=== PATIENT | female | born 1970 | race Caucasian/White ===

== ENCOUNTER → 2018-06-19 10:41 | Outpatient (CLI) | payer OTHER, SELFPAY ==
--- OUTSIDE RECORDS SUMMARY | 2018-08-14 13:03 | XMS RPT_ITS ---
:1970 Author Organization OHIP Care Team Providers Name Role Phone Ronny Tineo Attending Unavailable Ronny Tineo Referring Unavailable Ronny Tineo Primary Care Unavailable KARINA GROSS DO Attending Unavailable PHYSICIAN, NONE Primary Care Unavailable Leilani Paredes Attending Unavailable Felton Gregory Attending Unavailable Felton Gregory Attending Unavailable Felton Gregory Attending Unavailable Felton Gregory Attending Unavailable Felton Gregory Attending Unavailable PROBLEMS PROBLEMS DATE TYPE CONDITION / CODE ATTENDING STATUS SOURCE 07/04/2018 Unknown T14.8XXA - Other Rivka, Active [facility] of [facility] unspecified body Hospital region, initial Repository encounter / T14.8XXA(ICD-10) 11/18/2017 Admitting Unknown / Lielani Paredes Active [facility] Medical diagnosis UNK(Unknown) [facility] Repository PROCEDURES PROCEDURES No Procedure Records FoundRESULTS RESULTS MISCELLANEOUS LAB Collected: 06/19/2018 Status: F Source: [facility] PROCEDURE 11:09 AM [facility] REPOSITORY Order Comment: Comments: LAB WORK SENT TO [facility] Test(s) Ordered: LAB WORK SENT TO [facility] TYPE CODE TESTS RESULT OUT OF RANGE REFERENCE UNITS LAB L801.1541 Normal [facility] LAB TEST Result Comment: Sent directly to testing facility per ordering physician. @ 07/02/18 0847 MYOUNG Performed By: #### L801.1541 #### [facility] [address] [place], [address] SURG Observed: 01/13/2018 Status: F Source: [facility] 5:35 PM CENTER [place] REPOSITORY Patient: TIMMY FROST F SPECIMEN: [id number] Collection Date: 01/13/181734 Received: 01/14/18 Status: VONDA Shine Dr.: Felton Gregory MD Ph# Othr. Dr.: No Family Physician given Material for Examination: A LEFT BREAST MASS/FIBROADENOMA PRE-OP DIAGNOSIS: FIBROADENOMA LEFT BREAST POST-OP DIAGNOSIS: SAME SURGICAL PROCEDURE: EXCISION OF LEFT BREAST MASS WITH ULTRASOUND NEEDLE LOCALIZATION DIAGNOSIS A. Left breast mass, excision with ultrasound needle localization: Fibroadenoma with focal apocrine metaplasia and intralesional microcalcifications. Fibrocystic changes in surrounding breast tissue encompassing duct ectasia, ductal epithelial hyperplasia without atypia, apocrine metaplasia, intraductal microcalcifications and stromal fibrosis. COMMENT Immunohistochemical stains, done on sections A4 and A7 to further evaluate the lesion, is positive in the myoepithelial cells surrounding all of the ducts, supporting the diagnosis. GROSS DESCRIPTION The specimen is received fresh and labeled with the patient's name, ID and designated left breast mass/fibroadenoma. The specimen is removed from the patient on January 13, 2018 at 1735 hrs. The specimen is placed in formalin on January 13, 2018 at 1755 hrs. The specimen is received in a Zain device and consists of a fibrofatty portion of breast tissue, 48.6 g and 7.7 x 6.8 x 2.0 cm. The specimen is oriented with a short stitch superior and a long stitch lateral. The specimen is inked as follows: Superior margin - yellow; Inferior margin - red; Medial margin - orange; Lateral margin - green; Anterior margin - blue; Posterior margin - black. The specimen has a pinned radiographic area of interest. Identified in the radiographic area of interest is a white, well-circumscribed, rubbery, slightly lobulated nodule that is focally hemorrhagic, 2.3 x 2.0 x 1.1 cm. Grossly, this is 0.1 cm from the medial, inferior, and anterior margins. A metal clip is identified within this nodule. The remainder of the breast consists of mostly lobulated adipose tissue and only scant white fibrous tissue is identified. No additional lesions or nodules are grossly identified. Trade Show Manager sections are submitted in cassettes A1 through A8. SECTION SUMMARY: A1-7. The entire nodule A8. Trade Show Manager fibrous tissue [facility] NAME: TIMMY FROST Pathology and Laboratory Medicine UNIT#: [id number] LOC: [facility] Cryptographic Clerk: Danii Solis M.D. [id number] ROOM/BED: [facility] : 66 AGE/SEX: 47/F ORD.Felton Gage MD CONTINUED ON NEXT PAGE Patient: TIMMY FROST Unit#: [id number] (continued) SPECIMEN: [id number] MICROSCOPIC DESCRIPTION Eight Ariadna stained slides and two p63 immunostained slides with adequate positive and negative controls are examined. COPIES TO: No Family Physician given Felton Gregory MD Signed Verified/Reviewed by NINA EUCEDA MD 01/16/18 This dictation was created using voice recognition software. Phonetic and/or minor grammatical errors may exist. [facility] NAME: TIMMY FROST Pathology and Laboratory Medicine UNIT#: [id number] LOC: [facility] Cryptographic Clerk: Danii Solis M.D. [facility] [id number] ROOM/BED: [facility] : 66 AGE/SEX: 47/F ORD.Felton Gage MD END OF REPORT US EACH NEEDLE Observed: 01/13/2018 Status: F Source: [facility] 11:36 AM [facility] US EACH NEEDLE [facility] , US BREAST TARGETED LEFT Ordering Physician: Felton Gregory MD 01/13/2018 1:11 PM TARGETED LEFT BREAST ULTRASOUND WITH ULTRASOUND-GUIDED NEEDLE LOCALIZATION: Clinical Statement: Mass localization, unable to palpate. Comparison: Left breast ultrasound 12/10/2017. Report: The needle localization procedure was briefly discussed with the patient. The left breast was prepped and draped in the usual sterile fashion. Local anesthesia was provided using 1% lidocaine. Under ultrasound guidance, wire localization of the 2.5 cm left breast mass at 4:00 was performed using a 5 cm localization needle. Puncture was made at the skin surface near the superolateral margin of the mass. The wire was deployed within the mass along the posterior margin of the biopsy marking clip. Images were saved to PACS for documentation. IMPRESSION: Successful ultrasound-guided wire localization of the left breast mass at 4:00. ---- Electronic Signature on File ---- Signed By: Toby Lopez MD [email or web address] Dictated: 01/13/2018 1:46 PM Signed: 01/13/2018 1:50 PM Reported By: TOBY LOPEZ M.D. Signed By: TOBY LOPEZ M.D. US BREAST TARGETED Observed: 01/13/2018 Status: F Source: [employer] [facility] 11:36 AM [facility] US EACH NEEDLE LOCAL BRST LT , US BREAST TARGETED LEFT Ordering Physician: Felton Gregory MD 01/13/2018 1:11 PM TARGETED LEFT BREAST ULTRASOUND WITH ULTRASOUND-GUIDED NEEDLE LOCALIZATION: Clinical Statement: Mass localization, unable to palpate. Comparison: Left breast ultrasound 12/10/2017. Report: The needle localization procedure was briefly discussed with the patient. The left breast was prepped and draped in the usual sterile fashion. Local anesthesia was provided using 1% lidocaine. Under ultrasound guidance, wire localization of the 2.5 cm left breast mass at 4:00 was performed using a 5 cm localization needle. Puncture was made at the skin surface near the superolateral margin of the mass. The wire was deployed within the mass along the posterior margin of the biopsy marking clip. Images were saved to PACS for documentation. IMPRESSION: Successful ultrasound-guided wire localization of the left breast mass at 4:00. ---- Electronic Signature on File ---- Signed By: Toby Lopez MD [email or web address] Dictated: 01/13/2018 1:46 PM Signed: 01/13/2018 1:50 PM Reported By: TOBY LOPZE M.D. Signed By: TOBY LOPEZ M.D. OR Observed: 01/13/2018 Status: UNK Source: [facility] 11:36 AM [facility] DATE OF SERVICE: 01/13/2018 PREOPERATIVE DIAGNOSIS: Fibroadenoma, left breast. POSTOPERATIVE DIAGNOSIS: Fibroadenoma, left breast. OPERATION: Excision of left breast fibroadenoma after wire localization. SURGEON: Felton Gregory MD INDICATIONS FOR PROCEDURE: A 47-year-old female with biopsy- proven left breast fibroadenoma. She requested removal. Discussed the option for observation. She declined that. The lesion was initially palpable; however, over the last 4 weeks, it appears that it has shrunken in size. I was not able to identify the previously palpable lesion on physical examination in the preoperative area, and I recommended localization under ultrasound guidance. The radiology department was kind enough to accommodate that on a short notice. The wire was placed. TECHNIQUE: Left breast prepped and draped in sterile fashion, and incision was made parallel to the areola, curvilinear, deep into the subcutaneous fat following the path of the wire. Core of breast tissue was removed around the wire all the way down to the tip. Palpable fibroadenoma was noted. Excision extended beyond that. The specimen was oriented with short superior and long lateral. Hemostasis was excellent. The x-ray postexcision confirmed that the lesion was completely excised, including the clip and the tip of the wire. The cavity was then instilled with Marcaine with epinephrine. Layered closure was performed with 3-0 Vicryl in the deep dermis, running 4-0 Monocryl suture. Dermabond was applied. Patient tolerated procedure very well, was extubated, transferred to recovery room area in stable condition. Felton Gregory MD [id number] SSI File#: [id number] Verified/Reviewed by 01/18/18 1759 SHAMA4 [facility] PATIENT NAME: TIMMY FROST [address] [facility] [address] [place] MEDICAL REC #: [id number] [place] [address] ADMIT DATE: DISCHARGE DATE: OPERATIVE REPORT ATTENDING PHY: Felton Gregory MD DIGITAL MAMMO UNILAT Observed: 01/13/2018 Status: F Source: [facility] LT (DIAG) 11:36 AM [facility] REPOSITORY UNILATERAL LEFT DIGITAL DIAGNOSTIC MAMMOGRAM: 01/13/2018 CLINICAL: POST U/S NEEDLE LOC. Comparison is made to exams dated: 01/13/2018 localization, 11/18/2017 mammogram - [facility], and 08/07/2016 mammogram - [facility]. The tissue of the left breast is heterogeneously dense. This may lower the sensitivity of mammography. There is a wire in the appropriate position in the left breast lower outer aspect middle depth. This wire placement is at biopsy clip site. IMPRESSION: POST PROCEDURE MAMMOGRAM FOR MARKER PLACEMENT There was a successful wire placement in the left breast lower outer aspect middle depth. The distal end of the wire is at the biopsy clip site. The false-negative rate of mammography is approximately 10%. Management of a palpable abnormality must be based upon clinical grounds. Elisa Garza M.D. kk/:01/13/2018 13:58:59 Booking Officer: Yojana WOODRUFF(Nimo)(Manuel), [facility] BI-RADS: Post biopsy marker Reported By: ELISA GARZA M.D. Signed By: ELSIA GARZA M.D. DIGITAL SURGICAL Observed: 01/13/2018 Status: F Source: [facility] SPECIMEN LT 11:36 AM [facility] REPOSITORY SPECIMEN LEFT BREAST: 01/13/2018 CLINICAL: Mass, left breast. Correlation is made to exams dated: 01/13/2018 mammogram - [facility] and 11/18/2017 mammogram - [facility]. A lumpectomy specimen was imaged for the previous biopsy site located in the left breast upper outer aspect anterior depth. This was described on the previous mammography report. IMPRESSION: SPECIMEN The imaged specimen includes the lesion, a biopsy clip, and the distal portion of the localization wire. Waiting for pathology results. A final report will be issued when these become available. Addendum: Pathology results: Left breast mass, excision with ultrasound needle localization: Fibroadenoma with focal apocrine metaplasia and intralesional microcalcifications. Fibrocystic changes in surrounding breast tissue encompassing duct ectasia, ductal epithelial hyperplasia without atypia, apocrine metaplasia, intraductal microcalcifications and stromal fibrosis. Findings are concordant. Elisa Garza M.D. kk/:01/17/2018 08:02:41 Booking Officer: RT Hemanth(Nimo)(M), [facility] Reported By: ELISA GARZA M.D. Signed By: ELISA GARZA M.D. SURG Observed: 12/10/2017 Status: F Source: [facility] 3:13 PM [facility] REPOSITORY Patient: TIMMY FROST F SPECIMEN: [id number] Collection Date: 12/10/171512 Received: 12/11/17 Status: VONDA Shine Dr.: Felton Gregory MD Ph# Othr. : Dewayne Coronado MD Othr. : No Family Physician given Material for Examination: A CORE BIOPSY LEFT BREAST MASS 4 O'CLOCK 8 CM FTN LOWER/OUTER PRE-OP DIAGNOSIS: LEFT BREAST MASS POST-OP DIAGNOSIS: NONE GIVEN SURGICAL PROCEDURE: CORE BIOPSY LEFT BREAST MASS LOWER/OUTER 4 O'CLOCK 8 CM FTN DIAGNOSIS A. Core biopsy left breast mass at 4 o'clock, 8 cm FTN, lower/outer: - Fibroadenoma. GROSS DESCRIPTION The specimen is received in formalin and labeled with the patient's name, ID and designated left breast, lower outer, 4:00, 8 cm FTN, are 5 friable fragments of core shaped yellow-white tissue measuring from 0.5-1.5 cm in length, x 0.2 cm in diameter each. The specimen is removed from the patient at 1451 hrs on December 10, 2017, and placed in formalin at 1452 hrs on December 10, 2017. Entirely submitted in cassette A1. MICROSCOPIC DESCRIPTION Two Ariadna stained slides examined. Intradepartmental consultation with Nicolas Ruiz M.D. COPIES TO: Dewayne Coronado MD No Family Physician given Felton Gregory MD Signed Verified/Reviewed by DANII SOLIS M.D. 12/12/17 This dictation was created using voice recognition software. Phonetic and/or minor grammatical errors may exist. [facility] NAME: TIMMY FROST Pathology and Laboratory Medicine UNIT#: [id number] LOC: [facility] Cryptographic Clerk: Danii Solis M.D. [facility] [id number] ROOM/BED: [facility] : 66 AGE/SEX: 47/F ORD.Felton Gage MD END OF REPORT US BREAST TARGETED Observed: 12/10/2017 Status: F Source: [facility] 1:30 PM [facility] [place] REPOSITORY ULTRASOUND OF LEFT BREAST: 12/10/2017 CLINICAL: LEFT BREAST MASS. Comparison is made to exams dated: 11/18/2017 mammogram and 11/18/2017 ultrasound - [facility]. Color flow ultrasound of the left breast was performed. Mercado scale images of the real-time examination were reviewed. There is a 2.5 cm oval lesion with a circumscribed margin in the left breast lower outer aspect middle depth. This oval lesion is hypoechoic with posterior acoustic enhancement. This correlates with ultrasound findings. IMPRESSION: SUSPICIOUS OF MALIGNANCY The 2.5 cm oval lesion in the left breast has a differential diagnosis of carcinoma or a fibroadenoma and is suspicious of malignancy. This will be biopsied as described separately. Dewayne Coronado M.D. [facility]/:12/10/2017 15:36:27 Booking Officer: Martha Griffin RDMS RT(R), [facility] Ultrasound BI-RADS: 4 Suspicious abnormality Reported By: DEWAYNE CORONADO M.D. Signed By: DEWAYNE CORONADO M.D. US LT BREAST COR BX Observed: 12/10/2017 Status: F Source: [facility] NEEDLE 1:30 PM [facility] [place] REPOSITORY ULTRASOUND GUIDED BIOPSY LEFT BREAST WITH MARKING DEVICE INSERTED: 12/10/2017 CLINICAL: LEFT BREAST MASS. PROCEDURE DESCRIPTION: Potential risks and benefits of the procedure were explained to the patient and informed written consent was obtained. Correlation is made to exams dated: 11/18/2017 ultrasound and 11/18/2017 mammogram - [facility]. An ultrasound guided biopsy using real-time ultrasound was performed for the 2.5 cm lobulated mass located in the left breast at 4 o'clock middle depth. This was described on the previous ultrasound report. The skin was prepped in the usual manner. The abnormality was approached from the lateral aspect. A biopsy needle was placed adjacent to the abnormality under ultrasound guidance. Once the needle was documented to be in the correct location, four specimens were obtained using an automated biopsy gun. A twirl clip was inserted into the biopsy cavity. Post procedure imaging demonstrates the clip at the targeted area. The specimens were sent to the laboratory for pathological analysis. IMPRESSION: ULTRASOUND GUIDED BIOPSY BENIGN Ultrasound guided biopsy of the 2.5 cm mass in the left breast at 4 o'clock middle depth was performed. Pathology indicates benign fibroadenoma (FA). Pathology results are concordant with imaging findings. Return to annual mammogram screening schedule is recommended. Dewayne Coronado M.D. [facility]/:12/12/2017 14:17:39 Booking Officer: Martha Griffin RDMS RT(R), [facility] Reported By: DEWAYNE CORONADO M.D. Signed By: DEWAYNE CORONADO M.D. US BREAST TARGETED Observed: 11/18/2017 Status: F Source: [facility] LEFT 1:28 PM [facility] [place] REPOSITORY ULTRASOUND OF LEFT BREAST: 11/18/2017 CLINICAL: Left breast lump. Comparison is made to exam dated: 08/07/2016 mammogram - [facility]. Color flow ultrasound of the left breast was performed. Mercado scale images of the real-time examination were reviewed. There is a 2.5 cm oval mass with a circumscribed margin in the left breast lower outer aspect middle depth. This oval mass is hypoechoic. Color flow imaging demonstrates that there is increased vascularity. IMPRESSION: SUSPICIOUS OF MALIGNANCY - FOLLOW-UP RECOMMENDED The 2.5 cm oval mass in the left breast has a differential diagnosis of carcinoma or a fibroadenoma and is suspicious of malignancy. An ultrasound guided biopsy is recommended. Dewayne Coronado M.D. bc/penrad:11/18/2017 14:32:29 Booking Officer: Shanna Vizcarra, [facility] letter sent: Abnormal Exam Ultrasound BI-RADS: 4 Suspicious abnormality Reported By: DEWAYNE CORONADO M.D. Signed By: DEWAYNE CORONADO M.D. DAV MAMMO BILAT Observed: 11/18/2017 Status: F Source: [facility] (DIAG) 1:28 PM [facility] [place] REPOSITORY BILATERAL DIGITAL DIAGNOSTIC MAMMOGRAM TOMOSYNTHESIS WITH CAD: 11/18/2017 CLINICAL: Left breast lump. Comparison is made to exams dated: 08/07/2016 mammogram, 06/01/2015 mammogram, and 06/08/2014 mammogram - [facility]. The tissue of both breasts is heterogeneously dense. This may lower the sensitivity of mammography. Digital Breast Tomosynthesis was performed. Current study was also evaluated with a Computer Aided Detection (CAD) system. There are benign calcifications both breasts. There also is a benign intramammary node right breast. There is a 2.3 cm round equal density mass with a circumscribed margin in the left breast upper outer aspect middle depth. No other significant masses, calcifications, or other findings are seen in either breast. IMPRESSION: SUSPICIOUS OF MALIGNANCY The 2.3 cm round equal density mass in the left breast is suspicious of malignancy. An ultrasound guided biopsy is recommended. The false-negative rate of mammography is approximately 10%. Management of a palpable abnormality must be based upon clinical grounds. Shanna Cotter M.D. eab,mrd/penrad:11/18/2017 15:50:25 Booking Officer: Kathleen Enamorado, RT(R)(M), [facility] letter sent: Abnormal Exam BI-RADS: 4 Suspicious abnormality Reported By: SHANNA SEVILLA M.D. Signed By: SHANNA SEVILLA M.D. ALLERGIES ALLERGIES DATE TYPE / CODE NAME / CODE REACTION SEVERITY SOURCE 10/11/2014 Drug Penicillins/F Hives Unknown [facility] Allergy/4160 [id number](RXN Hospital 09411(SNOMED ORM) Repository CT) 10/11/2014 Drug Sulfa Vomiting Unknown [facility] Allergy/4160 (Sulfonamide Hospital 05323(SNOMED Antibiotics)/ Repository CT) [id number](RX NORM) ENCOUNTERS ENCOUNTERS ADMIT/DISCHARGE ACCOUNT NUMBER ADMITTING ENCOUNTER LOCATION SOURCE CLASS 06/19/2018 [id number] Ambulatory [facility] ding:MTLAB Repository 02/04/2018 [id number] [facility] ng:H.SHA 01/13/2018 [id number] [facility]SD 12/17/2017 [id number] Ambulatory [facility] Repository ng:H.SHA 12/10/2017 [id number] [facility] ng:H. 11/27/2017 [id number] [facility] ng:H.SHA 11/18/2017 [id number] Ambulatory [facility] Repository ng:H.LINUS 09/06/2017/09/06/19 [id number] Emergency BBuilding:LILLY [address] Repository PAYERS PAYERS ENCOUNTER GUARANTOR PAYER SUBSCRIBER SOURCE 06/19/2018 TIMMY F Primary Insurance:UMR TIMMY F [place] [id number] [address]B[place]fie CHABOUDEDOB: [facility], Number: [id number] [place] [address]Jmw: [id number] Repository Date:[id number] () [address] [place] [phone]: 06/19/2018 Secondary NOT GIVENUNK [place] Insurance:SELF PAY [facility] Number: Effective Repository Date:2018-06-19 02/04/2018 TIMMY F Primary TIMMY [facility] [id number] [facility] [place] [address]Gnj: RESOURCESPolicy Number: (HP) [id number] Date:6529-82-64[address] [place] [address]JW: 01/13/2018 TIMMY F Primary TIMMY [facility] [id number] [facility] [place] [address]Wwy: RESOURCESPolicy Number: (HP) [id number] Date:6863-83-63[address] [place] [address]XM: 12/17/2017 TIMMY F Primary TIMMY [facility] [id number] [facility] [place] [address]Myr: RESOURCESPolicy Number: (HP) [id number] Date:9407-20-85[address] [place] [address]VP: 12/10/2017 TIMMY F Primary TIMMY [facility] [id number] [address] [facility] [place] [facility] [place] [address]Yjw: RESOURCESPolicy Number: (HP) [id number] Date:[id number] [place] [address]MW: 11/27/2017 TIMMY Jauregui Primary TIMMY Stack [facility] [id number] Insurance:[facility] [place] [address]Vva: RESOURCESPolicy Number: (HP) [id number] Date:[address] [place] [address]CD: 11/18/2017 TIMMY F Primary TIMMY Stack [facility] [id number] E Insurance:[facility] [place]ository [place] [address]Ayk: RESOURCESPolicy Number: (HP) [id number] Date:[address] [place] [address]JZ: 09/06/2017 TIMMY Jauregui Primary TIMMY Jauregui [facility] CHABOUDEDOB: Insurance:[facility] E HEALTH PLANPolicy [id number], Number: [place], [place] [address]Psr: [id number] [place] [address]Hqi: Date:2017-09-06 - ()Tel: [phone]) [id number] () (WP) Name:[phone] () [address] [place] [id number]:
== END ==
PROVIDERS: Family Provider Family Medicine; PCP Family Medicine; Referring Provider Family Medicine; Visit Provider Family Medicine
DX: T14.8XXA Other injury of unspecified body region, initial encounter (principal)
CPT/HCPCS: 36415

== ENCOUNTER 2023-02-06 09:13 | Emergency (ER) | payer BC, SELFPAY ==
[2023-02-06 09:14] VITALS: BP 177/120; PULSE 97; RESP 14; TEMP 36.4; O2SAT 97; BMI 24.1
--- NOTE | 2023-02-06 09:22 | EDS_ITS ---
HPI History of Present Illness Chief Complaint: Lower Extremity Injury [facility] Medical History (Updated 02/06/23 @ 10:[address] Lucio Pimentel, DO) Depressed Home Medications Ranitidine [Zantac] 150 mg PO DAILY 10/09/14 [History Last Taken 10/11/14] citalopram 20 mg tablet 20 mg PO DAILY 10/09/14 [History Last Taken 10/11/14] estradiol 2 mg tablet (Estrace) 2 mg PO DAILY 10/09/14 [History Last Taken 10/11/14] lisinopril 10 mg tablet 10 mg PO DAILY 10/09/14 [History Last Taken 10/11/14] lorazepam 0.5 mg tablet 0.5 mg PO TID PRN PRN Anxiety 10/09/14 [History Last Taken 10/10/14] ohqivuvx-dgvnjfqjg-xjjhruqk 3.5 mg/mL-10,000 unit/mL-0.1% eye drops 1 drp OP TID 10/09/14 [History Last Taken 10/11/14] oxybutynin chloride 5 mg tablet 5 mg PO BID 10/09/14 [History Last Taken 10/11/14] oxycodone-acetaminophen 5 mg-325 mg tablet 1 - 2 tab PO Q4H PRN PRN Pain #12 tabs 10/09/14 [Rx Last Taken 10/11/14] trazodone 100 mg tablet 100 mg PO QHS 10/09/14 [History Last Taken 10/10/14] daptomycin 500 mg intravenous solution 350 mg IV Q24H 10/13/14 [History Last Taken 10/13/14] cefadroxil 1 gram tablet 1 g PO 10 facial cellulitis #10 tabs 10/16/14 [Rx Last Taken Unknown] Allergy/AdvReac Type Severity Reaction Status Date / Time bacitracin Allergy Mild Swelling Verified 02/06/23 09:16 Penicillins Allergy Hives Verified 02/06/23 09:16 Sulfa (Sulfonamide AdvReac Vomiting Verified 02/06/23 09:16 Antibiotics) Social History Smoking Status: Heavy Smoker (>10/day) EXAM Physical Exam Const Vital Signs: 02/06/23 09:14 Temperature 97.5 F L Temperature Source Temporal Pulse Rate 97 Respiratory Rate 14 Blood Pressure 177/120 H Blood Pressure Mean 139 Pulse Ox 97 Oxygen Delivery Method Room Air MDM MDM MDM Narrative Medical decision making narrative: HISTORY OF PRESENT ILLNESS: 52-year-old female here with concern for right ankle pain. she states there is been no inciting event. She states is going on for the greater part of 2 months. She states she has not followed up or seen a doctor about it. States she has appointment with a foot and ankle doctor on Saturday. States the pain has gotten worse recently since she has been ambulating more and moving from [place] to [place]. Denies any fevers. Denies history of diabetes. Denies any history of IV drug use. Denies any back pain. Denies any pain in other joints. Patient denies active cancer, being bedridden for greater than 3 days, denies unilateral leg swelling, denies any varicose veins, denies any calf tenderness, denies any edema. Denies major surgery within 12 weeks, recent paralysis, previous DVT. REVIEW OF SYSTEMS: Pertinent positives: Right ankle pain Pertinent negatives: Focal numbness, weakness, loss of sensation or movement PHYSICAL EXAM: Nursing triage notes reviewed, Vital signs reviewed Constitutional: please see mdm Lungs: Clear to auscultation, No wheezing or rales. No increased work of breathing, no conversational dyspnea, no accessory muscle use, no nasal flaring. No respiratory distress noted Heart: Regular rate and rhythm, No murmurs, No rubs and No gallops, 2+ distal pulses (radial, femoral, posterior tibial) in all extremities Extremities: Mild edema noted over the right lateral malleolus, pain was not out of proportion to exam, joint was not warm or excessively swollen. There is no calf tenderness. Compartments were soft. Neuro: No focal neurological deficits, cranial nerves II through XII intact, 5/5 strength in all extremities. Intact sensation to light touch in all extremities, 2+ reflexes bilateral patella tendons. Normal gait. No ataxia. Skin: No erythema MEDICAL DECISION MAKING: Chief Complaint: Right ankle pain External records reviewed: No recent advanced imaging of the involved extremity Factors affecting care: GERD, hypertension, depression Social determinants of health: none History obtained from others: none Consults: none ALL IMAGES (IF OBTAINED) HAVE BEEN PERSONALLY REVIEWED AND INTERPRETED BY MYSELF. [facility] Narrative: Patient was initially hypertensive otherwise hemodynamically stable afebrile and nontoxic-appearing. Right lower extremity is neurovascularly intact. Compartments are soft. Symmetric pulses are present in bilateral lower extremities. I considered the following differential diagnosis: Ankle fracture, dislocation, sprain, osteoarthritis I obtained an x-ray to rule out ankle fracture dislocation or sprain. X-ray was unremarkable. I considered septic arthritis however patient had no significant joint swelling, warmth, pain or proportion to exam or risk factors that would predispose patient to septic arthritis. I did discuss pursuing an arthrocentesis for definitive diagnosis however patient refused procedure at this time. Given the chronic nature of the patient's pain I have suspicion this is acute limb threatening etiology. May be associated with chronic inflammatory issues such as rheumatoid arthritis. We will give rheumatology and foot and ankle follow-up. I discussed strict return precautions with the patient. The patient and/or family, caregivers express understanding. The patient and/or family, caregivers agrees with the plan. Shared decision making: I will have a discussion with the patient and or visitors regarding risk/bene fits of further testing or admission. They will be made aware of of the risk/benefits inherent in this decision they will be given the opportunity to voice understanding. Total critical care time today provided was at least 0 minutes. This excludes separately billable procedures. Critical care time (if documented) is secondary to the patient having high probability of clinically significant/life threatening deterioration in the patient's condition which required my urgent intervention. Radiography Chest X-Ray - ED: Read by ED Physician Diagnostic Testing: X-ray right ankle shows no evidence of obvious fracture dislocation by my read. Discharge Plan Triage Chief Complaint: Lower Extremity Injury ED Provider: Lucio Pimentel Dx/Rx/DC Orders Clinical Impression: Acute ankle pain Instructions: ED Ankle Sprain (Adult), ED RICE Prescriptions: No Action citalopram 20 MG tablet 20 mg PO DAILY Patient Comments: DEPRESSION lorazepam 0.5 MG tablet 0.5 mg PO TID PRN PRN (Reason: Anxiety) Patient Comments: ANXIETY trazodone 100 MG tablet 100 mg PO QHS Patient Comments: SLEEP neomycin-polymyxin B-dexameth 5 ML drops,suspension 1 drp OP TID Patient Comments: EYE HEALTH lisinopril 10 MG tablet 10 mg PO DAILY Patient Comments: BLOOD PRESSURE estradiol [Estrace] 2 MG tablet 2 mg PO DAILY Patient Comments: SUPPLIMENT oxybutynin chloride 5 MG tablet 5 mg PO BID Patient Comments: BLADDER Ranitidine [Zantac] 150 MG tablet 150 mg PO DAILY Patient Comments: HEART BURN oxycodone-acetaminophen 1 TABLET tablet 1 - 2 tab PO Q4H PRN PRN (Reason: Pain) Qty: 12 0RF Patient Comments: PAIN cefadroxil 1 GM tablet 1 g PO 10 Qty: 10 0RF Rx Instructions: start day after end of last IV antibiotic daptomycin 500 MG/10 ML recon soln 350 mg IV Q24H Stand Alone Forms: ED Work / School Excuse Primary Care Provider: Care Physician,No Primary Referrals: Mauricio Tineo MD [Med Staff - Creative Services Intern] - Zoila Gracia MD [Med Staff - Creative Services Intern] - Activity Restrictions/Additional Instructions: Thank you for trusting us with your care today! Please take Tylenol (2 pills, 650 mg), ibuprofen (2 pills, 400 mg) every 6 hours as needed for pain and fever control. Please return to the emergency department if your symptoms change or worsen. Specifically if develop fever, warmth, inability to move your involved extremity, change in color, coolness to touch or if your symptoms change or worsen in any way. Please follow with your primary care physician for further outpatient evaluation and management. Disposition Disposition: Home, Self Care Discharge Date/Time: 02/06/23 10:32
[2023-02-06] MEDS: Ibuprofen 200 MG Tablet 400 MG PO (09:37)
[2023-02-06] MEDS: Oxycodone/Apap 5/325 Tablet PO (09:38)
--- NOTE | 2023-02-06 09:45 | RAD_ITS ---
INDICATION: Right ankle pain, TTP over right lateral malleolus EXAMINATION/TECHNIQUE: X-RAY - RIGHT XR Ankle Min 3 Views 3 VIEWS COMPARISON: None. FINDINGS: SOFT TISSUES: Mild generalized soft tissue swelling. No radiopaque foreign body. BONES/JOINTS: No acute fracture or subluxation. Normal alignment. Preservation of the joint space. Incidental note of a moderate size plantar spur of the calcaneus.. No sclerotic or destructive changes observed. RAD/Ankle min 3 Views IMPRESSION: Some soft tissue swelling is present. No acute osseous abnormality of the right ankle. Electronically Signed: Gianni Lagunas MD at 9:55 EDT Reading Location ID and State: [id number] / Unknown , Service support ,
== END 2023-02-06 10:32 | disposition home or self-care (01) ==
PROVIDERS: Emergency Provider Emergency Medicine; Visit Provider Emergency Medicine
DX: M25.579 Pain in unspecified ankle and joints of unspecified foot (principal); M00.9 Pyogenic arthritis, unspecified; K21.9 Gastro-esophageal reflux disease without esophagitis; I10 Essential (primary) hypertension; F17.200 Nicotine dependence, unspecified, uncomplicated; F32.A Depression, unspecified
CPT/HCPCS: 73610; 99283

== ENCOUNTER → 2023-02-20 | Outpatient (CLI) | payer BC, SELFPAY ==
[2023-02-20 17:39] LABS: Absolute Lymphocyte Count 2.61 X10^3/uL (0.83-4.51); Absolute Neutrophil Count 3.1 X10^3/uL (2.0-7.7); Basophil# 0.03 X10^3/uL; Basophil% 0.5 % (0-1); Eosinophil# 0.08 X10^3/uL; Eosinophils% 1.3 % (0-5); Hematocrit 43.1 % (37-47); Hemoglobin 14.7 g/dL (12.0-15.0); Lymphocyte # 2.61 X10^3/ul (0.83-4.51); Mean Corp Hgb Conc 34.1 g/dL (32-36); Mean Corpuscular Volume 96.6 fL (81-99); Mean Platelet Vol. 9.4 fl (6.2-12.0); Monocyte# 0.57 X10^3/uL; Monocyte% 8.9 % (0-10); NRBC Flagged by Analyzer 0 % (0-5); Neutrophil # 3.06 X10^3/uL (2.7-7.7); Platelet Count 313 K/mm3 (150-450); RBC Distribution Width CV 14.1 % (11.6-14.6); RBC Distribution Width SD 50.1 fl (35.1-43.9); Red Blood Count 4.46 M/mm3 (4.2-5.4); White Blood Count 6.4 K/mm3 (4.4-11.0)
[2023-02-20 18:15] LABS: Vitamin B12 259 pg/mL (211-911); Vitamin D,25 Hydroxy 34.4 ng/mL
[2023-02-20 18:28] LABS: AST(SGOT) 28 U/L (15-37); Alanine Aminotransfer ALT/SGPT 30 U/L (13-56); Alkaline Phosphatase 88 U/L (45-117); Anion Gap 5 (5-15); BUN 9 mg/dL (7-18); BUN/Creat Ratio 12.5 RATIO (10-20); Bilirubin, Direct 0.15 mg/dL (0.00-0.30); Calcium,Total 8.6 mg/dL (8.5-10.1); Chloride 104 mmol/L (98-107); Cholesterol 193 mg/dL (200); Creatinine, Serum 0.72 mg/dL (0.55-1.02); EST Glomerular Filtration Rate 89 mL/min (>60); Est Glom Filt Rate - Afr Amer 108 mL/min (>60); Ferritin 71 ng/mL (8-252); GGTP 66 U/L (5-55); Globulin 3.3 g/dL (2.2-4.2); Glucose 74 mg/dL (74-106); High Density Lipoprotein 116 mg/dL; Iron 86 ug/dL (50-170); Magnesium 2.2 mg/dL (1.6-2.6); Potassium 3.6 mmol/L (3.5-5.1); Protein, Total 6.3 g/dL (6.4-8.2); Sodium Level 136 mmol/L (136-145); Thyroid Stim Hormone (TSH) 3.17 uIU/mL (0.358-3.74); Triglycerides 159 mg/dL; Very Low Density Lipoprotein 32 mg/dL (5-40)
== END | disposition home or self-care (01) ==
LOC: MFPLAB 16:22
PROVIDERS: PCP Family Medicine; Visit Provider Family Medicine
DX: Z13.220 Encounter for screening for lipoid disorders (principal); R56.9 Unspecified convulsions; Z13.1 Encounter for screening for diabetes mellitus; F10.10 Alcohol abuse, uncomplicated; R63.4 Abnormal weight loss; Z13.21 Encounter for screening for nutritional disorder
CPT/HCPCS: 36415; 80048; 80061; 80076; 82306; 82607; 82728; 82977; 83540; 83735; 84443; 85025

== ENCOUNTER → 2024-09-11 | Outpatient (CLI) | payer BC, SELFPAY ==
--- NOTE | 2024-09-11 06:56 | CT_ITS ---
PROCEDURE: LOW DOSE CT LUNG SCREENING REASON FOR EXAM: Patient has smoked 1 pack per day for 41 years. TECHNIQUE: Low Dose CT Lung Screening without contrast COMPARISON: None. FINDINGS: PULMONARY NODULES: (Only nodules >6mm are reported) Nodules described below are on series unless otherwise specified. Pulmonary Nodules: No concerning pulmonary nodules. Hardware:None Lymph Nodes:No mediastinal hilar or axillary lymphadenopathy. Heart and Vasculature:Normal heart size. No pericardial effusion.Thoracic aorta and pulmonary arteries have normal contours; noncontrast technique limits evaluation. Coronary Artery Calcifications: Absent Lungs and Airways: The lungs are normally expanded and clear. Pleura:No pleural effusion. No pneumothorax. Upper Abdomen:Visualized portions of the upper abdominal viscera are unremarkable. Bones:Bone windows are unremarkable. CT/Low Dose CT Lung Screening IMPRESSION: 1. BASED ON THE ACR LUNG RADS FOR THE MOST SUSPICIOUS NODULE (IF ANY) DESCRIBE D IN THIS REPORT, THE OVERALL LUNG RADS SCORE IS 1. 1 - NEGATIVE. RECOMMEND 12-MONTH SCREENING LDCT.. 2. SMOKING CESSATION COUNSELING IS RECOMMENDED IF THE PATIENT IS STILL SMOKING . 3. OTHER SIGNIFICANT FINDINGSNone. One or more dose reduction techniques were used (e.g., Automated exposure contr ol, adjustment of the mA and/or kV according to patient size, use of iterative reconstruction technique). The following information is provided for reference:Lung-RADS 2021 Assessment C ategories. Additional information involving Lung-RADS is available at www.acr.org. 0-INCOMPLETE 1-NEGATIVE:No nodules or definitely benign nodules. Complete, central, popcorn , or centric ring calcifications OR fat containing 2-BENIGN APPEARANCE (based on imaging features or indolent behavior). Juxtaple ural nodule: < 10mm AND solid; smooth margins; oval, entiform, or triangular shape Solid nodule: <6mm at baseline or new< 4mm Part solid Nodule: < 6mm total mean diameter at baseline Nonsolid nodule:(GGN) < 30mm OR >=30mm stable or slowly growing Airway nodule, subsegmental at baseline, new, or stable Category 3 nodule stabl e or decreased in size at 6-month follow-up CT or Category 3 or 4A nodules that resolve on follow-up OR category 4B findings prov en to be benign following diagnotic work up. 3 - Probably Benign (Based on imaging features or behavior) Solid Nodule: >= 6 to <8mm at baseline OR new 4 to <6mm Part-solid nodule: >= 6mm toal mean diam. with solid component <6mm at baseline OR new < 6mm total mean diam. Non-solid nodule: GGN >= 30mm at baseline or new Atypical pulmonary cyst: Growing cystic component (mean diam.) of thick-walled cyst Category 4A nodule stable or decreased in size at 3-month follow-up CT (excl.ai rway). 4A - Suspicious Solid nodule: >=8 to < 15mm at baseline OR growing < 8mm OR new 6 to < 8mm Part solid nodule: >= 6mm total mean diam. w/ solid component >=6mm to < 8mm at baseline OR new or growing < 4mm solid component Airway nodule, segmental or more proximal at baseline or new Atypical pulmonary cyst: Thick-walled OR multilocular at baseline OR becomes mu ltilocular 4B - Very Suspicious Airway nodule, segmental or more proximal, and stable or growing Solid nodule: >= 15mm at baseline OR new or growing >= 8mm Part solid nodule: Solid component >= 8mm OR new or growing >= 4mm solid compon ent Atypical pulmonary cyst: Thick-walled with growing wall thickness/nodularity OR Growing multilocular (mean diam.) OR Multilocular with increased loculation or new/increased opacity Slow-growing solid or part solid nodule w/ growth over multiple screening exams 4X - Very Suspicious Category 3 or 4 nodules with additional features that increase the suspicion fo r lung cancer. S - Clinically Significant or potentially significant findings (non-lung cancer ) Reading Location: [place] [id number]
== END | disposition home or self-care (01) ==
LOC: CT 06:55
PROVIDERS: PCP Family Medicine; Referring Provider Family Medicine; Visit Provider Family Medicine
DX: Z12.2 Encounter for screening for malignant neoplasm of respiratory organs (principal); Z72.0 Tobacco use
CPT/HCPCS: 71271

== ENCOUNTER → 2024-09-15 | Outpatient (CLI) | payer BC, SELFPAY ==
--- NOTE | 2024-09-15 15:58 | BD_ITS ---
PROCEDURE: DEXA BONE DENSITY STUDY REASON FOR EXAM: F, age 54 y/o . Postmenopausal. TECHNIQUE: DEXA scan of the lumbar spine and both hips. COMPARISON: None. FINDINGS: Lumbar Spine (L1-L4): g/cm2 (0.872)/T-score (-1.6)/Z-score (-0.4) findings are suggestive of osteopenia with a moderate fracture risk. Left Femur Total: g/cm2 (0.665)/T-score (-2.3)/Z-score (-1.5) Left Femoral Neck: g/cm2 (0.547)/T-score (-2.7)/Z-score (-1.6) Right Femur Total: g/cm2 (0.671)/T-score (-2.2)/Z-score (-1.5) Right Femoral Neck: g/cm2 (0.582)/T-score (-2.4)/Z-score (-1.3) BD/Dexa Bone Density Study IMPRESSION: The patient is considered osteoporotic as outlined below according to World Hea th Organization (WHO) criteria with a high fracture risk. Reading Location: [id number]
== END | disposition home or self-care (01) ==
LOC: OPBD 15:54
PROVIDERS: PCP Family Medicine; Referring Provider Family Medicine; Visit Provider Family Medicine
DX: Z78.0 Asymptomatic menopausal state (principal)
CPT/HCPCS: 77080

== ENCOUNTER 2024-10-26 08:15 | Day surgery (SDC) | payer BC, SELFPAY ==
[2024-10-26] VITALS (7 sets, daily range): BP systolic 85–174; BP diastolic 51–105; PULSE 63–78; RESP 16–20; TEMP 36.2–36.8; O2SAT 95–100; BMI 25.0
--- NOTE | 2024-10-26 08:31 | H&P.OPEN ---
[facility] - General General Date of Service: 10/26/24 [facility] Narrative TIMMY FROST, is a 54 F who presents for screening colonoscopy. Patient never had previous colonoscopy. Patient denies any family history of colon cancer. Patient has bowel moods daily denies any blood. Patient denies any chronic abdominal pain/nausea/vomiting. Patient does have reflux and is on Protonix?symptoms controlled, no history of EGD. Patient did have an exploratory laparotomy in the past due to possible sounds like bowel obstruction, as well as a hysterectomy. [facility] Medical History Wears glasses MRSA infection Seizures Smoker Tobacco abuse Anxiety Depressed Home Medications ?Medication ?Instructions ?Recorded ?Last Taken ?Type lisinopril 10 mg tablet 10 mg PO QHS 10/09/14 10/25/24 History bupropion HCl 150 mg tablet,12 hr 150 mg PO QHS 08/21/24 10/25/24 History sustained-release cholecalciferol (vitamin D3) 50 50 mcg PO QDAY 08/21/24 10/25/24 History mcg (2,000 unit) capsule citalopram 40 mg tablet 40 mg PO QHS 08/21/24 10/25/24 History mecobalamin (vitamin B12) 1,000 1,000 mcg PO QDAY 08/21/24 10/25/24 History mcg chewable tablet pantoprazole 40 mg tablet,delayed 40 mg PO QHS 08/21/24 10/25/24 History release loratadine 10 mg tablet 10 mg PO DAILY 10/21/24 10/25/24 History (Allerclear) Allergy/AdvReac Type Severity Reaction Status Date / Time bacitracin Allergy Mild Swelling Verified 10/26/24 08:28 Penicillins Allergy Hives Verified 10/26/24 08:28 Sulfa (Sulfonamide AdvReac Vomiting Verified 10/26/24 08:28 Antibiotics) Surgical History History of tonsillectomy History of wisdom tooth extraction History of surgery on left wrist History of hysterectomy Social History household members: none and other details: current occupational status: employed Smoking Status: Heavy Smoker (>10/day) alcohol intake: current alcohol intake frequency: 3 or more drinks per day Alcohol type: beer substance use type: does not use Past Medical/Surgical History Planned Operation Planned Operative Procedure(s): CSCOPE Previous Hospitalizations/Surgeries HX of Surgeries: HYSTERECTOMY 2009 EXP ABD SURGERY >20YRS AGO Cardiovascular Hx Chest Pain within Last 2 months: No Hx of Irregular Heartbeat and/or Afib: No Hx Heart Attack: No Hx Hypertension: Yes Hx Cardiac Surgery/Stents/Etc.: No Hx Pain in Legs when Walking/Leg Cramps: No Respiratory Hx Chronic Obstructive Pulmonary Disease (COPD): No Hx Emphysema: No Hx Sleep Apnea: No CPAP: No BIPAP: No Do You Snore Loudly (louder than talking or can be heard): No Do You Often Feel Tired/ Fatigued/ Sleepy Dring Daytime?: No Has Anyone Observed You Stop Breathing During Sleep?: No Result (for STOP score): Negative Hx Smoking: Yes Smoking Status: Heavy Smoker (>10/day) Gastrointestinal Hx Gastrointestinal Bleed: No Hx Ulcer: No Hx Unplanned Weight Loss of 20#: No Neurological Hx Seizures: No Hx Multiple Sclerosis: No Hx Parkinson's Disease: No Blood Disorder Hx Hepatitis: No Hx Cirrhosis: No Hx Anemia: No Hx Blood Disorders: No Reproduction : No Genitourinary Hx Renal Disease: No Hx Dialysis: No Musculoskeletal Hx Arthritis: No Hx Rheumatoid Arthritis: No Endocrine Hx Diabetes: No Thyroid Disease: No Psycho/Social Hx Substance Use: No Hx Alcohol Use: Yes (3 BEERS DAY) Hx Anxiety: Yes Hx Depression: Yes Hx Dementia: No Miscellaneous Hx Cancer: No Allergies bacitracin Allergy (Mild, Verified 10/26/24 08:28) Swelling Penicillins Allergy (Verified 10/26/24 08:28) Hives Sulfa (Sulfonamide Antibiotics) Adverse Reaction (Verified 10/26/24 08:28) Vomiting Maternal: Diabetes and Heart Disease Paternal: Cancer and Hypertension Discharge Is Pt Admitted From a Residential, or a Correction: No After D/C, Where Do you Plan to Go: Return Home Physical Exam Const alert, oriented x3 and no apparent distress HEENT normocephalic and head/scalp atraumatic Resp normal respiratory effort Cardio regular rate GI soft to palpation and non-tender; Negative for non-distended Palpation: Negative for guarding Extremity no clubbing, cyanosis or edema Skin no rashes or lesions noted Neuro CN's II-XII intact bilaterally Psych mental status grossly normal Assessment & Plan Assessment/Plan (1) Encounter for screening for malignant neoplasm of colon: (2) GERD (gastroesophageal reflux disease): Surgery Risks - Colonoscopy I discussed with the patient the risks of the procedure: Yes Risks Include but are not Limited To: Risks include but are not limited to: Bleeding, perforation requiring further surgery, inability to complete colonoscopy requiring barium enema.
--- NOTE | 2024-10-26 08:52 | PCM.PRE.AN2 ---
ASA Classification* ASA Classification ASA Classification: 2 Assessment & Plan Anesthesia* Anesthesia Assessment Anesthesia Assessment: Discussed sedation and/or anesthesia options, risks, benefits, and alternatives with patient/parents/legal guardian/POA. Questions invited. The patient/parents/legal guardian/POA seems to understand and agrees to proceed with anesthesia plan. Reviewed the physical assessment, medical history, allergy history and patient home medications list prior to surgery/procedure/anesthetic and documented any changes. Performed airway and anesthesia risk assessments. Anesthesia Type Anesthesia Type: MAC Anesthesia Focused Assessment* Temperature: 98.3 F Pulse Rate: 78 Blood Pressure: 174/105 Respiratory Rate: 20 Pulse Ox: 95 Airway Assessment Mouth opens: >3 cm Mallampati Score: II Focused Labs Anesthesia Preop lab: CBC WBC 6.4 K/mm3 (4.4-11.0) 02/20/23 16:02/20/23 RBC 4.46 M/mm3 (4.2-5.4) 02/20/23 16:02/20/23 Hgb 14.7 g/dL (12.0-15.0) 02/20/23 16:23 02/20/23 Hct 43.1 % (37-47) 02/20/23 16:23 02/20/23 Plt Count 313 K/mm3 (150-450) 02/20/23 16:23 02/20/23 CHEMISTRY Potassium 3.6 mmol/L (3.5-5.1) 02/20/23 16:23 02/20/23 Sodium 136 mmol/L (136-145) 02/20/23 16:23 02/20/23 Magnesium 2.2 mg/dL (1.6-2.6) 02/20/23 16:23 02/20/23 BUN 9 mg/dL (7-18) 02/20/23 16:23 02/20/23 Creatinine 0.72 mg/dL (0.55-1.02) 02/20/23 16:23 02/20/23 Glucose 74 mg/dL (74-106) 02/20/23 16:23 02/20/23 TSH 3.17 uIU/mL (0.358-3.74) 02/20/23 16:23 02/20/23 COAG Pre-Assessment Diagnosis/Proposed Procedure Planned Operative Procedure(s): CSCOPE Anesthesia History 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 When Was Last Pacemaker Check QUESTION #4 FULL TEXT: You/Your Family Experience fever (hyperthermia) with Anesthesia Last Oral Intake Last Oral intake: Last Oral Intake NPO since 00:00 10/26/24 08:32 Meds taken in AM with sips of water? Meds patient instructed to take am of surgery PONV PONV - escrow manager: PONV - escrow manager Female Yes 10/21/24 09:36 HX of Motion Sickness No 10/21/24 09:36 HX of N/V After Surgery No 10/21/24 09:36 Non-Smoker No 10/21/24 09:36 Duration of Surgery greater No 10/21/24 09:36 than 60 minutes Number of Risk Factors 1 10/21/24 09:36 PONV Score Low Risk 10/21/24 09:36 Height & Weight Height & Weight: Anesthesia: Height & Weight Height 5 ft 4 in 10/26/24 08:32 Weight: 66 kg 10/26/24 08:32 Body Mass Index (BMI) 25.0 10/26/24 08:32 Respiratory Assessment Respiratory Assessment - escrow manager: Respiratory Tract Infection Hx - escrow manager Hx Respiratory Tract Infection No 10/21/24 09:36 STOP Sleep Apnea STOP Sleep Apnea - escrow manager: STOP Sleep Apnea - escrow manager Hx Hypertension Yes 10/26/24 08:32 Hx Sleep Apnea No 10/26/24 08:32 CPAP No 10/26/24 08:32 BIPAP No 10/26/24 08:32 Do you snore loudly (louder No 10/26/24 08:32 than talking or can be heard Do you often feel tired/ No 10/26/24 08:32 fatigued/ sleepy during daytime? Has anyone observed you stop No 10/26/24 08:32 breathing during sleep? STOP Results Negative 10/26/24 08:32 QUESTION #5 FULL TEXT : Do you snore loudly (louder than talking or can be heard through closed doors)? 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 Specify any problems Hx of Preganancy in last 3 N/A 10/21/24 09:36 Months Nurse Filling Out Transfusion NBUCHER 10/21/24 09:36 & Questions: Date: 10/21/24 10/21/24 09:36 Time: 09:37 10/21/24 09:36 Patient unable to answer at this time (ie. confused, unrespo /Reproduction History /Reproductive History - escrow manager: /Reproductive Hx- escrow manager Hx Now No 10/26/24 08:32 Gestational Age (in weeks): EDC: Hx Hx Para Hx Section SAB No 10/21/24 09:36 PFS Medical History Wears glasses MRSA infection Seizures Smoker Tobacco abuse Anxiety Depressed Home Medications ?Medication ?Instructions ?Recorded ?Last Taken ?Type lisinopril 10 mg tablet 10 mg PO QHS 10/09/14 10/25/24 History bupropion HCl 150 mg tablet,12 hr 150 mg PO QHS 08/21/24 10/25/24 History sustained-release cholecalciferol (vitamin D3) 50 50 mcg PO QDAY 08/21/24 10/25/24 History mcg (2,000 unit) capsule citalopram 40 mg tablet 40 mg PO QHS 08/21/24 10/25/24 History mecobalamin (vitamin B12) 1,000 1,000 mcg PO QDAY 08/21/24 10/25/24 History mcg chewable tablet pantoprazole 40 mg tablet,delayed 40 mg PO QHS 08/21/24 10/25/24 History release loratadine 10 mg tablet 10 mg PO DAILY 10/21/24 10/25/24 History (Allerclear) Allergy/AdvReac Type Severity Reaction Status Date / Time bacitracin Allergy Mild Swelling Verified 10/26/24 08:28 Penicillins Allergy Hives Verified 10/26/24 08:28 Sulfa (Sulfonamide AdvReac Vomiting Verified 10/26/24 08:28 Antibiotics) Surgical History History of tonsillectomy History of wisdom tooth extraction History of surgery on left wrist History of hysterectomy Social History household members: none and other details: current occupational status: employed Smoking Status: Heavy Smoker (>10/day) alcohol intake: current alcohol intake frequency: 3 or more drinks per day Alcohol type: beer substance use type: does not use Review of Systems (Anesthesia) ROS Narrative System reviewed and no additional complaints, except as documented.
--- NOTE | 2024-10-26 09:30 | COLBX_PTH ---
PATIENT: TIMMY FROST LOC: EN U#:[id number] AGE/SX: 54/F ROOM: RE10/26/[address]: Dr. Johanna Pastor MD : 1970 BED: DIS: 10/26/2024 SPEC #: [id number] RECD: 10/26/24 13:05 STATUS: VONDA REMarie #: [id number] JONO: 10/26/24 09:[address]: Johanna Pastor DEPT: SURGICAL PATHOLOGY RECD BY: Maritza Rangel ENTERED: 10/26/24 14:23 SP TYPE: COLON BX OTHR DR: Dr. Ronny Tineo MD Tissues: A - Descending colon B - Cecum, NOS C - COLON BIOPSY D - Descending colon E - Descending colon F - Sigmoid colon biopsy G - Sigmoid colon biopsy H - Rectum, NOS Procedures: Surgery Specimen Level IV HEADER OPERATION: Colonoscopy with polypectomy PRE-OP DIAGNOSIS: Encounter for screening for malignant neoplasm of colon, GERD TISSUE SUBMITTED: A- Descending polyp, B- Cecum polyp x2, C- Hepatic flexure polyp biopsy,D- Descending colon polyp x2 #1, E- Descending poly biopsy #2, F- Sigmoid colon polyp #1, G- Sigmoid colon polyp #2, H- Rectum polyp MICROSCOPIC DIAGNOSIS A. Descending colon, polyp, biopsy: * Colonic mucosal polyp with cautery artifact - see note. Note: The cautery artifact hampers the assessment. A tubular adenoma vs hyperplastic polyp cannot be ruled out. B. Colon, cecum, polyp, biopsy: * Tubular adenoma. C. Colon, hepatic flexure, polyp, biopsy: * Tubular adenoma. D. Descending colon, polyp, biopsy: * Tubular adenoma. E. Descending colon, polyp #2, biopsy: * Tubular adenoma. F. 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 G. Sigmoid colon, polyp #2, biopsy: * Hyperplastic polyp. H. Rectum, polyp, biopsy: * Tubular adenoma. MICROSCOPIC DESCRIPTION Slides are reviewed. GROSS DESCRIPTION A. Received in formalin in a container labeled with the patient's name, date of , and #1 descending polyp is a 0.4 x 0.3 x 0.3 cm fragment of luis-pink mucosal tissue. Submitted in toto in A1. B. Received in formalin in a container labeled with the patient's name, date of , and #2 cecal polyp (x 2) are multiple luis-pink fragments of mucosal tissue measuring 1.0 x 0.5 x 0.2 cm in aggregate. Submitted in toto in B1. C. Received in formalin in a container labeled with the patient's name, date of , and #3 hepatic flexure polyp biopsy is a 0.4 x 0.2 x 0.2 cm fragment of luis-pink mucosal tissue. Submitted in toto in C1. D. Received in formalin in a container labeled with the patient's name, date of , and #4 descending polyp is a 0.8 x 0.7 x 0.5 cm polypoid piece of luis-pink mucosal tissue. The resection margin is inked black, and it is trisected. Submitted entirely in D1. E. Received in formalin in a container labeled with the patient's name, date of , and #5 descending polyp #2 biopsy are 2 luis-pink fragments of mucosal tissue measuring 0.3 x 0.2 x 0.2 cm and 0.2 x 0.1 x 0.1 cm. Submitted in toto in E1. F. Received in formalin in a container labeled with the patient's name, date of , and #6 sigmoid colon polyp #1 is a 1.2 x 1.0 x 0.7 cm luis-pink and polypoid piece of mucosal tissue. The resection margin is inked black, and it is quadrisected. Submitted entirely in F1. G. Received in formalin in a container labeled with the patient's name, date of , and 7) sigmoid colon polyp #2 are 2 luis-pink fragments of mucosal tissue measuring 0.4 x 0.3 x 0.3 cm and 0.6 x 0.5 x 0.5 cm. The largest exhibits a small resection margin which is inked black. It is bisected. Submitted entirely in G1. H. Received in formalin in a container labeled with the patient's name, date of , and rectal polyp are multiple luis-pink fragments of mucosal tissue measuring 1.0 x 0.5 x 0.3 cm in aggregate. Submitted in toto in H1. [facility] 10-26-2024 CPT:96100z2
--- NOTE | 2024-10-26 11:22 | PCM.POST.ANE ---
Anesthesia: Postop Eval I Current Vital Signs Temperature: 97.6 F Pulse Rate: 67 Blood Pressure: 97/51 Respiratory Rate: 16 Pulse Ox: 100 Oxygen Delivery Method: Room Air Assessment Airway patent: Yes Spontaneous unlabored respirations: Yes Mental status: Asleep nausea: No Vomiting: No Anesthesia Complication: No Fluid Hydration Crystalloid volume administer (ml): 150 Total IV fluid infused: 150 Progress Note Anesthesia document: Postop Eval 1 completed: Yes
--- NOTE | 2024-10-26 11:24 | OP.COLON_ITS ---
Patient Name: Esha Ren Procedure Date: 10/26/2024 9:53 AM Date of : 1970 Age: 54 Procedure: Colonoscopy Indications: Screening for colorectal malignant neoplasm Providers: Johanna Pastor MD Referring MD: Mauricio Tineo Medicines: Monitored Anesthesia Care Patient Profile: This is a 54 year old female. Last Colonoscopy: none. The patient's first colonoscopy is today. Complications: No immediate complications. Procedure: Pre-Anesthesia Assessment: - Prior to the procedure, a History and Physical was performed, and patient medications and allergies were reviewed. The patient's tolerance of previous anesthesia was also reviewed. The risks and benefits of the procedure and the sedation options and risks were discussed with the patient. All questions were answered, and informed consent was obtained. Prior Anticoagulants: The patient has taken no anticoagulant or antiplatelet agents. ASA Grade Assessment: Per anesthesia. After reviewing the risks and benefits, the patient was deemed in satisfactory condition to undergo the procedure. After I obtained informed consent, the scope was passed under direct vision. Throughout the procedure, the patient's blood pressure, pulse, and oxygen saturations were monitored continuously. The pediatric colonoscope was introduced through the anus and advanced to the cecum, identified by the appendiceal orifice, ileocecal valve and palpation. The colonoscopy was performed without difficulty. The patient tolerated the procedure well. The quality of the bowel preparation was good. Scope In: 10:05:35 AM Scope Withdrawal Time 0 hours 53 minutes 26 seconds Scope Out: 11:11:26 AM Total Procedure Duration Time 1 hour 5 minutes 51 seconds Findings: Hemorrhoids were found on perianal exam. Non-bleeding internal hemorrhoids were found. The hemorrhoids were Grade I (internal hemorrhoids that do not prolapse). A 12 mm polyp was found in the sigmoid colon. The polyp was pedunculated. The polyp was removed with a hot snare. Resection and retrieval were complete. To prevent bleeding after the polypectomy, one hemostatic clip was successfully placed. There was no bleeding during, or at the end, of the procedure. Eight semi-pedunculated polyps were found in the rectum, sigmoid colon, descending colon and cecum. The polyps were 4 to 8 mm in size. These polyps were removed with a hot snare. Resection and retrieval were complete. Two sessile polyps were found in the descending colon and hepatic flexure. The polyps were less than 5 mm in size. These polyps were removed with a cold biopsy forceps. Resection and retrieval were complete. The exam was otherwise without abnormality on direct and retroflexion views. Impression: - Hemorrhoids found on perianal exam. - Non-bleeding internal hemorrhoids. - One 12 mm polyp in the sigmoid colon, removed with a hot snare. Resected and retrieved. Clip was placed. - Eight 4 to 8 mm polyps in the rectum, in the sigmoid colon, in the descending colon and in the cecum, removed with a hot snare. Resected and retrieved. - Two less than 5 mm polyps in the descending colon and at the hepatic flexure, removed with a cold biopsy forceps. Resected and retrieved. - The examination was otherwise normal on direct and retroflexion views. Recommendation: - Discharge patient to home. - Resume previous diet. - Continue present medications. - Await pathology results. - Repeat colonoscopy 1-2 years for surveillance of multiple polyps. Procedure Code(s): --- Professional --- 82443, PT, Colonoscopy, flexible; with removal of tumor(s), polyp(s), or other lesion(s) by snare technique [id number], 59, Colonoscopy, flexible; with biopsy, single or multiple Diagnosis Code(s): --- Professional --- Z12.11, Encounter for screening for malignant neoplasm of colon K64.0, First degree hemorrhoids D12.5, Benign neoplasm of sigmoid colon D12.8, Benign neoplasm of rectum D12.0, Benign neoplasm of cecum D12.4, Benign neoplasm of descending colon D12.3, Benign neoplasm of transverse colon (hepatic flexure or splenic flexure) CPT copyright 2021 [employer]. All rights reserved. The codes documented in this report are preliminary and upon cpc coder review may be revised to meet current compliance requirements. MD Johanna Williamson MD 10/26/2024 11:24:23 AM This report has been signed electronically. Number of Addenda: 0 Note Initiated On: 10/26/2024 9:53 AM
--- NOTE | 2024-10-26 11:25 | OP.CCLET_ITS ---
10/26/2024 Mauricio Tineo [address] [place] [address] Re : Colonoscopy procedure for Esha Ren Dear Dr. Tineo This procedure was performed on Saturday, October 26, 2024. My impressions and recommendations are as follows: Impressions : - Hemorrhoids found on perianal exam. - Non-bleeding internal hemorrhoids. - One 12 mm polyp in the sigmoid colon, removed with a hot snare. Resected and retrieved. Clip was placed. - Eight 4 to 8 mm polyps in the rectum, in the sigmoid colon, in the descending colon and in the cecum, removed with a hot snare. Resected and retrieved. - Two less than 5 mm polyps in the descending colon and at the hepatic flexure, removed with a cold biopsy forceps. Resected and retrieved. - The examination was otherwise normal on direct and retroflexion views. Recommendations : - Discharge patient to home. - Resume previous diet. - Continue present medications. - Await pathology results. - Repeat colonoscopy 1-2 years for surveillance of multiple polyps. My findings are described in the full procedure note, which is enclosed. If I can be of further assistance, please feel free to contact me at Doctor phone number(s): , Work: . Sincerely, MD Johanna Williamson MD 10/26/2024 11:24:23 AM This report has been signed electronically.
--- NOTE | 2024-10-26 11:51 | PCM.POSTANE2 ---
Anesthesia Postop Eval I Sum Postop Eval Completion status Anesthesia document: Postop Eval 1 completed: Yes Anesthesia Postop Eval I Summary Anesthesia Postop Eval I Summary: Anesthesia Postop Eval I: Assessment Summary Airway patent Yes 10/26/24 11:25 [email or web address] Spontaneous unlabored Yes 10/26/24 11:25 [email or web address] respirations Mental status Asleep 10/26/24 11:25 [email or web address] nausea No 10/26/24 11:25 [email or web address] Vomiting No 10/26/24 11:25 [email or web address] Anesthesia Postop Eval I: Fluid Summary Crystalloid volume administer 150 10/26/24 11:25 [email or web address] (ml) Colloids volume administered ( ml) Blood Product volume administered (ml) Total IV fluid infused 150 10/26/24 11:25 [email or web address] Anesthesia Postop Eval I: Summary Notes Anesthesia Complication No 10/26/24 11:25 [email or web address] Anesthesia Complication Comment: Post-operative progress note Anesthesia: Postop Eval II Evaluation Mental status: Awake Pain Level: 0 nausea: No Vomiting: No
== END 2024-10-26 11:57 | disposition home or self-care (01) ==
LOC: EN 08:16 → AC 08:18
PROVIDERS: PCP Family Medicine; Referring Provider Family Medicine; Visit Provider Surgery
PROC: 0DJD8ZZ Inspection of Lower Intestinal Tract, Via Natural or Artificial Opening Endoscopic (ICD-10-PCS; CPT 45378; principal; 2024-10-26 09:25)
DX: Z12.11 Encounter for screening for malignant neoplasm of colon (principal); K21.9 Gastro-esophageal reflux disease without esophagitis; K64.0 First degree hemorrhoids; Z90.710 Acquired absence of both cervix and uterus; D12.4 Benign neoplasm of descending colon; D12.8 Benign neoplasm of rectum; D12.0 Benign neoplasm of cecum; D12.5 Benign neoplasm of sigmoid colon; D12.3 Benign neoplasm of transverse colon; Z86.14 Personal history of Methicillin resistant Staphylococcus aureus infection; F17.210 Nicotine dependence, cigarettes, uncomplicated
CPT/HCPCS: 45380; 45385; 88305; A4216; J2405